=== PATIENT | female | born 1960 | race African-American/Black ===

== ENCOUNTER 2017-05-30 13:55 | Inpatient (IN) | payer OTHER ==
[2017-05-30 16:53] VITALS: BMI 22.3
--- NOTE | 2017-05-30 18:31 | HP ---
COWS - Scale Resting Pulse: 0= [place] 80 or Below Sweatin=Flushed/Facial Moisture Restless Observation: 1= Difficult to Sit Still Pupil Size: 0= Normal to Room Light Bone or Joint Aches: 1= Mild Discomfort Runny Nose/ Eye Tearin= Nasal Congestion GI Upset > 30mins: 1= Stomach Cramp Tremor Observation: 2= Slight Tremor Visible Yawning Observation: 1= 1-2x During Session Anxiety or Irritability: 2=Irritable/Anxious Goose Flesh Skin: 3=Piloerection COWS Score: 14 CIWA Score - CIWA Score Nausea/Vomitin Muscle Tremors: 2 Anxiety: 3 Agitation: 1-Slight > Activity Paroxysmal Sweats: 3 Orientation: 0-Oriented Tacttile Disturbances: 3-Moderate Itch/Numb/Burn Auditory Disturbances: 1-Very Mild Visual Disturbances: 0-None Headache: 1-Very Mild CIWA-Ar Total Score: 17 Admission ROS [facility]HS - HPI Chief Complaint: withdrawal symptoms. " I want to get better" Allergies/Adverse Reactions: Allergies Allergy/AdvReac Type Severity Reaction Status Date / Time Iodinated Contrast- Oral and Allergy Severe Verified 05/30/17 17:56 IV Dye [Iodinated Contrast Media - IV Dye] pork derived (porcine) Allergy Verified 05/30/17 17:56 iodine dye Allergy Severe Uncoded 05/30/17 17:56 History of Present Illness: 56 yo female with hx of heroin, cocaine, alcohol and nicotine is here seeking detox. PHMX: HIV+ on HARRT therapy, neuropathy on both lower extremities, Hep C. Denies suicidal / homicidal ideation or suicide attempts. Denies hx overdose , seizures or black outs. Last detox [place] 2015. Longest period of sobriety 7 years. Exam Limitations: No Limitations - Ebola screening Have you traveled outside of the country in the last 21 days: No Have you had contact with anyone from an Ebola affected area: No Have you been sick,other than usual withdrawal symptoms: No Do you have a fever: No - Review of Systems Constitutional: Chills, Changes in sleep, Unintentional Wgt. Loss (loss 10 lbs) EENT: reports: Nose Congestion Respiratory: reports: Cough (x 4 weeks) Cardiac: reports: No Symptoms Reported GI: reports: Nausea, Poor Fluid Intake, Abdominal cramping : reports: No Symptoms Reported Musculoskeletal: reports: Joint Pain Integumentary: reports: No Symptoms Reported Neuro: reports: Numbness, Tingling, Other (neuropathy on both feet, makes it difficulty to walk) Endocrine: reports: Increased Thirst Hematology: reports: No Symptoms Reported Psychiatric: reports: Mood/Affect Appropiate, Orientated x3 Other Systems: Reviewed and Negative Patient History - Patient Medical History Hx Anemia: No Hx Asthma: No Hx Chronic Obstructive Pulmonary Disease (COPD): No Hx Cancer: No Hx Cardiac Disorders: No Hx Congestive Heart Failure: No Hx Hypertension: No Hx Hypercholesterolemia: No Hx Pacemaker: No HX Cerebrovascular Accident: No Hx Seizures: No Hx Dementia: No Hx Diabetes: No Hx Gastrointestinal Disorders: No Hx Liver Disease: No Hx Genitourinary Disorders: No Hx Sexually Transmitted Disorders: Yes (Herpes) Hx Renal Disease (ESRD): No Hx Thyroid Disease: No Hx Human Immunodeficiency Virus (HIV): Yes (since 1988) Hx Hepatitis C: Yes (since 1988) Hx Depression: Yes Hx Suicide Attempt: No Hx Bipolar Disorder: No Hx Schizophrenia: No - Patient Surgical History Past Surgical History: Yes Hx Abdominal Surgery: Yes (hysterectomy) Hx Orthopedic Surgery: Yes (2011 left ankle fx, knee surgery 2011) Hx Hysterectomy: Yes (in 2004 for fibroid ) Other Surgical History: s/p removal of parotid tumors both in 1990 and radiation Sx L knee and L an Anesthesia Reaction: No - PPD History Previous Implant?: Yes Documented Results: Negative w/o proof Implanted On Prior R Admission?: Yes Date: 05/15/13 PPD to be Administered?: Yes - Reproductive History Patient : No - Smoking Cessation Smoking history: Current every day smoker Have you smoked in the past 12 months: Yes Aproximately how many cigarettes per day: 3 Cigars Per Day: 0 Hx Chewing Tobacco Use: No Initiated information on smoking cessation: Yes 'Breaking Loose' booklet given: 05/30/17 - Substance & Tx. History Hx Alcohol Use: Yes Substance Use Type: Alcohol, Cocaine, Heroin - Substances Abused Heroin Route: Inhalation Frequency: Daily Amount used: 1 bag Age of first use: 56 Date of Last Use: 05/30/17 Cocaine Route: Inhalation Frequency: Daily Amount used: $30 Age of first use: 22 Date of Last Use: 05/30/17 Alcohol Route: Oral Frequency: 1-2 times per week Amount used: 3-4 40 oz beers Age of first use: 13 Date of Last Use: 05/28/17 Family Disease History - Family Disease History Family Disease History: Other: Father (alcohol), Mother (alcohol) Admission Physical Exam [facility] - Vital Signs Vital Signs: Vital Signs - 24 hr 05/30/17 16:46 Temperature 97.1 F L Pulse Rate 80 Respiratory 18 Rate Blood Pressure 103/70 - Physical General Appearance: Yes: Appropriately Dressed, Mild Distress, Thin, Sweating, Anxious HEENTM: Yes: EOMI, Hearing grossly Normal, Normal ENT Inspection, Nasal Congestion, Rhinorrhea Respiratory: Yes: Chest Non-Tender, No Respiratory Distress, No Accessory Muscle Use, Wheezing (bilateral lower lobes) Neck: Yes: No masses,lesions,Nodules, Trachea in good position Breast: Yes: Breast Exam Deferred Cardiology: Yes: Regular Rhythm, Regular Rate Abdominal: Yes: Normal Bowel Sounds, Non Tender, Flat, Soft Genitourinary: Yes: Within Normal Limits Back: Yes: Normal Inspection Musculoskeletal: Yes: full range of Motion, Other (difficulty planting feet on the ground , attributes pain to neuropathy, patient receive in wheelchair) Extremities: Yes: Normal Capillary Refill, Normal Inspection, Normal Range of Motion, Non-Tender Neurological: 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, Fully Oriented, Alert, Motor Strength 5/5, Depressed Affect Integumentary: Yes: Normal Color, Dry, Warm Lymphatic: Yes: Within Normal Limits - Diagnostic (1) Opioid dependence with withdrawal Current Visit: Yes Status: Acute (2) Alcohol dependence with withdrawal Current Visit: Yes Status: Acute Qualifiers: Complication of substance-induced condition: uncomplicated Qualified Code(s ): F10.230 - Alcohol dependence with withdrawal, uncomplicated (3) Neuropathy involving both lower extremities Current Visit: Yes Status: Chronic (4) HIV (human immunodeficiency virus infection) Current Visit: Yes Status: Chronic (5) Hepatitis C carrier Current Visit: Yes Status: Chronic (6) Weight decreased Current Visit: Yes Status: Acute (7) Upper respiratory infection with cough and congestion Current Visit: Yes Status: Acute (8) Wheezing Current Visit: Yes Status: Acute Cleared for Admission [facility] - Detox or Rehab [facility] Level of Care: Medically Managed Detox Regimen/Protocol: Methadone/Librium S Breath Alcohol Content Breath Alcohol Content: 0 Urine Pregancy Test - Result Urine Test Results: Negative- NO Line Present Urine Drug Screen - Results Drug Screen Negative: No Urine Drug Screen Results: THC-Marijuana, HONORIO-Cocaine, OPI-Opiates
[2017-05-30] MEDS ORDERED: chlordiazePOXIDE HCL 25 MG CAPSULE PO PRN (18:37)
[2017-05-30] MEDS ORDERED: guaiFENesin/D-METHORPHAN HB 10 ML UNIT-DOSE CUPS PO PRN (18:37)
[2017-05-30] MEDS ORDERED: chlordiazePOXIDE HCL 25 MG CAPSULE PO ONE (18:37)
[2017-05-30] MEDS ORDERED: METHADONE HCL 10 MG TABLET (FOR DETOX USE ONLY) PO ONE ×2 (18:37→23:00)
[2017-05-30] MEDS ORDERED: LOPERAMIDE HCL 2 MG CAPSULE PO PRN (18:37)
[2017-05-30] MEDS ORDERED: MAGNESIUM HYDROX 2400MG/30ML ORAL SUSPENSION 30 ML CUP PO PRN (18:37)
[2017-05-30] MEDS ORDERED: MAG HYDROX/AL HYDROX/SIMETH 30 ML UNIT-DOSE CUP PO PRN (18:37)
[2017-05-30] MEDS ORDERED: NICOTINE POLACRILEX 2 MG GUM BC PRN (18:37)
[2017-05-30] MEDS ORDERED: MAGNESIUM CITRATE 300 ML BOTTLE PO PRN (18:37)
[2017-05-30] MEDS ORDERED: MENTHOL/PHENOL 1 EACH UD MM PRN (18:37)
[2017-05-30] MEDS ORDERED: P-EPHED 60MG/TRIPROLIDI 2.5MG TABLET PO PRN (18:37)
[2017-05-30] MEDS ORDERED: AZITHROMYCIN 250 MG TABLET PO ONE (19:03)
[2017-05-30] MEDS ORDERED: ALBUTEROL SO4 2.5/IPRATROPIUM 0.5 INH SOL 3 ML VIAL.NEB. NEB PRN (19:03)
[2017-05-30] MEDS: GABAPENTIN 300 MG CAPSULE (FP) PO SCH (22:32)
[2017-05-30] MEDS: THIAMINE HCL 100 MG TABLET (FP) PO SCH (22:32)
[2017-05-30] MEDS: valACYclovir HCL 500 MG TABLET (FP) PO SCH (22:33)
[2017-05-30] MEDS: chlordiazePOXIDE HCL 25 MG CAPSULE PO SCH (22:33)
[2017-05-31 00:01] LABS: URINE APPEARANCE CLEAR; URINE BILIRUBIN NEGATIVE (NEGATIVE); URINE BLOOD NEGATIVE (NEGATIVE); URINE COLOR YELLOW; URINE GLUCOSE (UA) NEGATIVE (NEGATIVE); URINE KETONE NEGATIVE (NEGATIVE); URINE NITRITE NEGATIVE (NEGATIVE); URINE PROTEIN NEGATIVE (NEGATIVE); URINE UROBILINOGEN NEGATIVE mg/dL (0.2-1.0)
[2017-05-31 00:03] LABS: URINE LEUK ESTERASE 2+ (NEGATIVE)
[2017-05-31 00:12] LABS: EPI CELLS RARE /HPF (FEW); URINE BACTERIA RARE /hpf (NONE SEEN); URINE MUCUS FEW
[2017-05-31] MEDS: GABAPENTIN 300 MG CAPSULE (FP) PO SCH ×3 (06:13→21:56)
[2017-05-31] MEDS: chlordiazePOXIDE HCL 25 MG CAPSULE PO SCH ×4 (06:14→22:49)
--- NOTE | 2017-05-31 09:27 | PN ---
[facility] CIWA - CIWA Score Nausea/Vomitin-Mild Nausea/No Vomiting Muscle Tremors: 4-Moderate,w/Arms Extend Anxiety: 4-Mod. Anxious/Guarded Agitation: 4-Moderately Restless Paroxysmal Sweats: 1-Minimal Palms Moist Orientation: 0-Oriented Tacttile Disturbances: 1-Very Mild Itch/Numbness Auditory Disturbances: 0-None Visual Disturbances: 0-None Headache: 0-None Present CIWA-Ar Total Score: 15 S COWS - Scale Resting Pulse: 0= [place] 80 or Below Sweatin= Chills/Flushing Restless Observation: 1= Difficult to Sit Still Pupil Size: 0= Normal to Room Light Bone or Joint Aches: 2= Severe Diffuse Aches Runny Nose/ Eye Tearin= Nasal Congestion GI Upset > 30mins: 2= Nausea/Diarrhea Tremor Observation of Outstretched Hands: 2= Slight Tremor Visible Yawning Observation: 2= >3x During Session Anxiety or Irritability: 2=Irritable/Anxious Goose Flesh Skin: 0=Smooth Skin COWS Score: 13 S Progress Note (SOAP) Subjective: joint ache body muscle pain sweat tremor restlessness irritable anxiety Objective: 05/31/17 09:30 Vital Signs Temperature 99.1 F 05/31/17 06:22 Pulse Rate 77 05/31/17 06:22 Respiratory Rate 18 05/31/17 06:22 Blood Pressure 105/68 05/31/17 06:22 O2 Sat by Pulse Oximetry (%) Laboratory Last Values Urine Color Yellow 05/30/17 23:40 Urine Appearance Clear 05/30/17 23:40 Urine pH 5.0 (5.0-8.0) 05/30/17 23:40 Ur Specific [place] 1.014 (1.001-1.035) 05/30/17 23:40 Urine Protein Negative (NEGATIVE) 05/30/17 23:40 Urine Glucose (UA) Negative (NEGATIVE) 05/30/17 23:40 Urine Ketones Negative (NEGATIVE) 05/30/17 23:40 Urine Blood Negative (NEGATIVE) 05/30/17 23:40 Urine Nitrite Negative (NEGATIVE) 05/30/17 23:40 Urine Bilirubin Negative (NEGATIVE) 05/30/17 23:40 Urine Urobilinogen Negative mg/dL (0.2-1.0) 05/30/17 23:40 Ur Leukocyte Esterase 2+ (NEGATIVE) H 05/30/17 23:40 Urine WBC (Auto) 1 /hpf (3-5) 05/30/17 23:40 Urine RBC (Auto) 2 /hpf (0-3) 05/30/17 23:40 Ur Epithelial Cells Rare /HPF (FEW) 05/30/17 23:40 Urine Bacteria Rare /hpf (NONE SEEN) 05/30/17 23:40 Urine Mucus Few 05/30/17 23:40 lab noted Assessment: 05/31/17 09:31 withdrawal sx Plan: continue detox
[2017-05-31] MEDS ORDERED: METHADONE HCL 10 MG TABLET (FOR DETOX USE ONLY) PO SCH (10:00)
[2017-05-31 10:15] LABS: HEMATOCRIT 32.5 % (32.4-45.2); HEMOGLOBIN 10.6 GM/dL (10.7-15.3); MCH 27.8 pg (25.7-33.7); MCHC 32.8 g/dl (32.0-36.0); MEAN CELL VOLUME 84.7 fl (80-96); PLATELET COUNT 237 K/MM3 (134-434); RBC 3.83 M/mm3 (3.60-5.2); RDW 13.4 % (11.6-15.6); WHITE BLOOD COUNT 5.2 K/mm3 (4.0-10.0)
[2017-05-31 10:18] LABS: ALBUMIN 2.5 g/dl (3.4-5.0); ALK PHOS 51 U/L (45-117); ANION GAP 7 (8-16); BLOOD UREA NITROGEN 12 mg/dL (7-18); CALCIUM 7.5 mg/dL (8.5-10.1); CHLORIDE 100 mmol/L (98-107); CO2 29 mmol/L (21-32); CREATININE 0.8 mg/dL (0.55-1.02); GLUCOSE,RANDOM 72 mg/dL (74-106); POTASSIUM 4.2 mmol/L (3.5-5.1); SGOT/AST 20 U/L (15-37); SGPT/ALT 11 U/L (12-78); SODIUM 136 mmol/L (136-145); TOT PROT 7.3 g/dl (6.4-8.2)
[2017-05-31 10:30] LABS: BILIRUBIN,TOTAL < 0.1 mg/dL (0.2-1.0)
[2017-05-31] MEDS: PRENATAL VITAMINS W/ FOLIC ACID TABLET (FP) PO SCH (11:00)
[2017-05-31] MEDS: valACYclovir HCL 500 MG TABLET (FP) PO SCH ×2 (11:00→21:54)
[2017-05-31] MEDS: AZITHROMYCIN 250 MG TABLET PO SCH (11:00)
[2017-05-31] MEDS: ELVITEG/COB/EMTRI/TENOFO (STRIBILD) TABLET -NF PO SCH (11:00)
[2017-05-31] MEDS: ACETAMINOPHEN 325 MG TABLET (FP) PO PRN ×2 (11:58→23:13)
[2017-05-31] MEDS: NICOTINE 14 MG/24 HOURS TOPICAL PATCH TD SCH (11:59)
--- NOTE | 2017-05-31 12:14 | EKG ---
Test Reason : Blood Pressure : / mmHG Vent. Rate : 079 BPM Atrial Rate : 079 BPM P-R Int : 194 ms QRS Dur : 086 ms QT Int : 366 ms P-R-T Axes : 053 043 067 degrees QTc Int : 419 ms NORMAL SINUS RHYTHM NORMAL ECG NO PREVIOUS ECGS AVAILABLE Confirmed by MD HECTOR, MATT ([id number]) on 05/31/2017 12:14:00 PM Referred By: Confirmed By:MATT YOUNG MD
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
[2017-05-31] MEDS: THIAMINE HCL 100 MG TABLET (FP) PO SCH (21:54)
[2017-05-31] MEDS: IBUPROFEN 400 MG TABLET (FP) PO PRN (21:54)
[2017-06-01] MEDS: chlordiazePOXIDE HCL 25 MG CAPSULE PO SCH ×3 (06:00→17:35)
[2017-06-01] MEDS: GABAPENTIN 300 MG CAPSULE (FP) PO SCH ×3 (07:24→22:50)
[2017-06-01] MEDS: METHADONE HCL 5 MG TABLET (FOR DETOX USE ONLY) PO SCH (10:58)
[2017-06-01] MEDS: NICOTINE 14 MG/24 HOURS TOPICAL PATCH TD SCH (10:58)
[2017-06-01] MEDS: PRENATAL VITAMINS W/ FOLIC ACID TABLET (FP) PO SCH (10:58)
[2017-06-01] MEDS: valACYclovir HCL 500 MG TABLET (FP) PO SCH ×2 (10:58→22:50)
[2017-06-01] MEDS: ELVITEG/COB/EMTRI/TENOFO (STRIBILD) TABLET -NF PO SCH (10:59)
[2017-06-01] MEDS: AZITHROMYCIN 250 MG TABLET PO SCH (10:59)
--- NOTE | 2017-06-01 11:08 | PN ---
[facility] CIWA - CIWA Score Nausea/Vomitin-Mild Nausea/No Vomiting Muscle Tremors: 4-Moderate,w/Arms Extend Anxiety: 3 Agitation: 3 Paroxysmal Sweats: 1-Minimal Palms Moist Orientation: 0-Oriented Tacttile Disturbances: 0-None Auditory Disturbances: 0-None Visual Disturbances: 0-None Headache: 0-None Present CIWA-Ar Total Score: 12 S COWS - Scale Resting Pulse: 0= [place] 80 or Below Sweatin= Chills/Flushing Restless Observation: 1= Difficult to Sit Still Pupil Size: 0= Normal to Room Light Bone or Joint Aches: 1= Mild Discomfort Runny Nose/ Eye Tearin= Runny Nose/Eyes GI Upset > 30mins: 1= Stomach Cramp Tremor Observation of Outstretched Hands: 2= Slight Tremor Visible Yawning Observation: 2= >3x During Session Anxiety or Irritability: 1=Feels Anxious/Irritable Goose Flesh Skin: 0=Smooth Skin COWS Score: 11 [facility] Progress Note (SOAP) Subjective: sweat tremor gi upset restlessness anxiety sleeplessness joint aches muscle pain Objective: 06/01/17 11:09 Vital Signs Temperature 97.5 F L 06/01/17 10:52 Pulse Rate 76 06/01/17 10:52 Respiratory Rate 20 06/01/17 10:52 Blood Pressure 92/58 06/01/17 10:52 O2 Sat by Pulse Oximetry (%) Laboratory Last Values WBC 5.2 K/mm3 (4.0-10.0) 05/31/17 07:00 RBC 3.83 M/mm3 (3.60-5.2) 05/31/17 07:00 Hgb 10.6 GM/dL (10.7-15.3) L D 05/31/17 07:00 Hct 32.5 % (32.4-45.2) 05/31/17 07:00 MCV 84.7 fl (80-96) 05/31/17 07:00 MCH 27.8 pg (25.7-33.7) 05/31/17 07:00 MCHC 32.8 g/dl (32.0-36.0) 05/31/17 07:00 RDW 13.4 % (11.6-15.6) 05/31/17 07:00 Plt Count 237 K/MM3 (134-434) 05/31/17 07:00 MPV 7.0 fl (7.5-11.1) L 05/31/17 07:00 Sodium 136 mmol/L (136-145) 05/31/17 07:00 Potassium 4.2 mmol/L (3.5-5.1) 05/31/17 07:00 Chloride 100 mmol/L (98-107) 05/31/17 07:00 Carbon Dioxide 29 mmol/L (21-32) 05/31/17 07:00 Anion Gap 7 (8-16) L 05/31/17 07:00 BUN 12 mg/dL (7-18) 05/31/17 07:00 Creatinine 0.8 mg/dL (0.55-1.02) 05/31/17 07:00 Creat Clearance w eGFR > 60 (>60) 05/31/17 07:00 Random Glucose 72 mg/dL (74-106) L 05/31/17 07:00 Calcium 7.5 mg/dL (8.5-10.1) L 05/31/17 07:00 Total Bilirubin < 0.1 mg/dL (0.2-1.0) L D 05/31/17 07:00 AST 20 U/L (15-37) 05/31/17 07:00 ALT 11 U/L (12-78) L 05/31/17 07:00 Alkaline Phosphatase 51 U/L (45-117) 05/31/17 07:00 Total Protein 7.3 g/dl (6.4-8.2) 05/31/17 07:00 Albumin 2.5 g/dl (3.4-5.0) L 05/31/17 07:00 Urine Color Yellow 05/30/17 23:40 Urine Appearance Clear 05/30/17 23:40 Urine pH 5.0 (5.0-8.0) 05/30/17 23:40 Ur Specific [place] 1.014 (1.001-1.035) 05/30/17 23:40 Urine Protein Negative (NEGATIVE) 05/30/17 23:40 Urine Glucose (UA) Negative (NEGATIVE) 05/30/17 23:40 Urine Ketones Negative (NEGATIVE) 05/30/17 23:40 Urine Blood Negative (NEGATIVE) 05/30/17 23:40 Urine Nitrite Negative (NEGATIVE) 05/30/17 23:40 Urine Bilirubin Negative (NEGATIVE) 05/30/17 23:40 Urine Urobilinogen Negative mg/dL (0.2-1.0) 05/30/17 23:40 Ur Leukocyte Esterase 2+ (NEGATIVE) H 05/30/17 23:40 Urine WBC (Auto) 1 /hpf (3-5) 05/30/17 23:40 Urine RBC (Auto) 2 /hpf (0-3) 05/30/17 23:40 Ur Epithelial Cells Rare /HPF (FEW) 05/30/17 23:40 Urine Bacteria Rare /hpf (NONE SEEN) 05/30/17 23:40 Urine Mucus Few 05/30/17 23:40 RPR Titer Nonreactive (NONREACTIVE) 05/31/17 07:00 lab noted Assessment: 06/01/17 11:09 withdrawal sx Plan: continue detox
[2017-06-01] MEDS: IBUPROFEN 400 MG TABLET (FP) PO PRN (18:34)
[2017-06-01] MEDS: chlordiazePOXIDE 5 MG CAPSULE PO SCH (22:49)
[2017-06-01] MEDS: THIAMINE HCL 100 MG TABLET (FP) PO SCH (22:50)
[2017-06-01] MEDS: ACETAMINOPHEN 325 MG TABLET (FP) PO PRN (22:51)
[2017-06-02] MEDS: GABAPENTIN 300 MG CAPSULE (FP) PO SCH ×3 (06:35→22:30)
[2017-06-02] MEDS: chlordiazePOXIDE 5 MG CAPSULE PO SCH ×3 (07:34→17:07)
[2017-06-02] MEDS: METHADONE HCL 5 MG TABLET (FOR DETOX USE ONLY) PO SCH (10:24)
[2017-06-02] MEDS: valACYclovir HCL 500 MG TABLET (FP) PO SCH ×2 (10:25→22:29)
[2017-06-02] MEDS: PRENATAL VITAMINS W/ FOLIC ACID TABLET (FP) PO SCH (10:25)
[2017-06-02] MEDS: AZITHROMYCIN 250 MG TABLET PO SCH (10:25)
[2017-06-02] MEDS: NICOTINE 14 MG/24 HOURS TOPICAL PATCH TD SCH (10:26)
[2017-06-02] MEDS: ELVITEG/COB/EMTRI/TENOFO (STRIBILD) TABLET -NF PO SCH (10:26)
--- NOTE | 2017-06-02 11:26 | PN ---
[facility] Progress Note (SOAP) Subjective: joint pain body aches sweat tremor gi distress stuffy nose, irritable restlessness Objective: 06/02/17 11:25 Vital Signs Temperature 97.3 F L 06/02/17 11:00 Pulse Rate 73 06/02/17 11:00 Respiratory Rate 16 06/02/17 11:00 Blood Pressure 95/64 06/02/17 11:00 O2 Sat by Pulse Oximetry (%) Laboratory Last Values WBC 5.2 K/mm3 (4.0-10.0) 05/31/17 07:00 RBC 3.83 M/mm3 (3.60-5.2) 05/31/17 07:00 Hgb 10.6 GM/dL (10.7-15.3) L D 05/31/17 07:00 Hct 32.5 % (32.4-45.2) 05/31/17 07:00 MCV 84.7 fl (80-96) 05/31/17 07:00 MCH 27.8 pg (25.7-33.7) 05/31/17 07:00 MCHC 32.8 g/dl (32.0-36.0) 05/31/17 07:00 RDW 13.4 % (11.6-15.6) 05/31/17 07:00 Plt Count 237 K/MM3 (134-434) 05/31/17 07:00 MPV 7.0 fl (7.5-11.1) L 05/31/17 07:00 Sodium 136 mmol/L (136-145) 05/31/17 07:00 Potassium 4.2 mmol/L (3.5-5.1) 05/31/17 07:00 Chloride 100 mmol/L (98-107) 05/31/17 07:00 Carbon Dioxide 29 mmol/L (21-32) 05/31/17 07:00 Anion Gap 7 (8-16) L 05/31/17 07:00 BUN 12 mg/dL (7-18) 05/31/17 07:00 Creatinine 0.8 mg/dL (0.55-1.02) 05/31/17 07:00 Creat Clearance w eGFR > 60 (>60) 05/31/17 07:00 Random Glucose 72 mg/dL (74-106) L 05/31/17 07:00 Calcium 7.5 mg/dL (8.5-10.1) L 05/31/17 07:00 Total Bilirubin < 0.1 mg/dL (0.2-1.0) L D 05/31/17 07:00 AST 20 U/L (15-37) 05/31/17 07:00 ALT 11 U/L (12-78) L 05/31/17 07:00 Alkaline Phosphatase 51 U/L (45-117) 05/31/17 07:00 Total Protein 7.3 g/dl (6.4-8.2) 05/31/17 07:00 Albumin 2.5 g/dl (3.4-5.0) L 05/31/17 07:00 Urine Color Yellow 05/30/17 23:40 Urine Appearance Clear 05/30/17 23:40 Urine pH 5.0 (5.0-8.0) 05/30/17 23:40 Ur Specific [place] 1.014 (1.001-1.035) 05/30/17 23:40 Urine Protein Negative (NEGATIVE) 05/30/17 23:40 Urine Glucose (UA) Negative (NEGATIVE) 05/30/17 23:40 Urine Ketones Negative (NEGATIVE) 05/30/17 23:40 Urine Blood Negative (NEGATIVE) 05/30/17 23:40 Urine Nitrite Negative (NEGATIVE) 05/30/17 23:40 Urine Bilirubin Negative (NEGATIVE) 05/30/17 23:40 Urine Urobilinogen Negative mg/dL (0.2-1.0) 05/30/17 23:40 Ur Leukocyte Esterase 2+ (NEGATIVE) H 05/30/17 23:40 Urine WBC (Auto) 1 /hpf (3-5) 05/30/17 23:40 Urine RBC (Auto) 2 /hpf (0-3) 05/30/17 23:40 Ur Epithelial Cells Rare /HPF (FEW) 05/30/17 23:40 Urine Bacteria Rare /hpf (NONE SEEN) 05/30/17 23:40 Urine Mucus Few 05/30/17 23:40 RPR Titer Nonreactive (NONREACTIVE) 05/31/17 07:00 lab noted Assessment: 06/02/17 11:26 withdrawal sx Plan: continue detox
[2017-06-02] MEDS: chlordiazePOXIDE HCL 10 MG CAPSULE PO SCH (22:29)
[2017-06-02] MEDS: IBUPROFEN 400 MG TABLET (FP) PO PRN (22:29)
[2017-06-02] MEDS: THIAMINE HCL 100 MG TABLET (FP) PO SCH (22:29)
[2017-06-03] MEDS: chlordiazePOXIDE HCL 10 MG CAPSULE PO SCH ×3 (06:44→17:12)
[2017-06-03] MEDS: GABAPENTIN 300 MG CAPSULE (FP) PO SCH ×3 (06:44→22:26)
[2017-06-03] MEDS ORDERED: METHADONE HCL 10 MG TABLET (FOR DETOX USE ONLY) PO SCH (10:00)
[2017-06-03] MEDS: valACYclovir HCL 500 MG TABLET (FP) PO SCH ×2 (10:49→22:26)
[2017-06-03] MEDS: PRENATAL VITAMINS W/ FOLIC ACID TABLET (FP) PO SCH (10:49)
[2017-06-03] MEDS: ELVITEG/COB/EMTRI/TENOFO (STRIBILD) TABLET -NF PO SCH (10:50)
[2017-06-03] MEDS: AZITHROMYCIN 250 MG TABLET PO SCH (10:50)
[2017-06-03] MEDS: NICOTINE 14 MG/24 HOURS TOPICAL PATCH TD SCH (10:50)
--- NOTE | 2017-06-03 11:24 | PN ---
[facility] Progress Note (SOAP) Subjective: aches and pains , nausea, interrupted sleep, but better than yesterday Objective: 06/03/17 11:23 Vital Signs Temperature 96.6 F L 06/03/17 10:42 Pulse Rate 75 06/03/17 10:42 Respiratory Rate 20 06/03/17 10:42 Blood Pressure 97/63 06/03/17 10:42 O2 Sat by Pulse Oximetry (%) Laboratory Tests 05/30/17 05/31/17 05/31/17 23:40 07:00 07:00 WBC 5.2 RBC 3.83 Hgb 10.6 L D Hct 32.5 MCV 84.7 MCH 27.8 MCHC 32.8 RDW 13.4 Plt Count 237 MPV 7.0 L Sodium 136 Potassium 4.2 Chloride 100 Carbon Dioxide 29 Anion Gap 7 L BUN 12 Creatinine 0.8 Creat Clearance w eGFR > 60 Random Glucose 72 L Calcium 7.5 L Total Bilirubin < 0.1 L D AST 20 ALT 11 L Alkaline Phosphatase 51 Total Protein 7.3 Albumin 2.5 L Urine Color Yellow Urine Appearance Clear Urine pH 5.0 Ur Specific [place] 1.014 Urine Protein Negative Urine Glucose (UA) Negative Urine Ketones Negative Urine Blood Negative Urine Nitrite Negative Urine Bilirubin Negative Urine Urobilinogen Negative Ur Leukocyte Esterase 2+ H Urine WBC (Auto) 1 Urine RBC (Auto) 2 Ur Epithelial Cells Rare Urine Bacteria Rare Urine Mucus Few RPR Titer 05/31/17 07:00 WBC RBC Hgb Hct MCV MCH MCHC RDW Plt Count MPV Sodium Potassium Chloride Carbon Dioxide Anion Gap BUN Creatinine Creat Clearance w eGFR Random Glucose Calcium Total Bilirubin AST ALT Alkaline Phosphatase Total Protein Albumin Urine Color Urine Appearance Urine pH Ur Specific [place] Urine Protein Urine Glucose (UA) Urine Ketones Urine Blood Urine Nitrite Urine Bilirubin Urine Urobilinogen Ur Leukocyte Esterase Urine WBC (Auto) Urine RBC (Auto) Ur Epithelial Cells Urine Bacteria Urine Mucus RPR Titer Nonreactive pt aox3 in nad ambulating Assessment: 06/03/17 11:23 withdrawal sx;s Plan: cont. detox increase fluids d/c in am
[2017-06-03] MEDS: hydrOXYzine PAMOATE 50 MG CAPSULE (FP) PO PRN (22:26)
[2017-06-03] MEDS: THIAMINE HCL 100 MG TABLET (FP) PO SCH (22:26)
[2017-06-04] MEDS ORDERED: METHADONE HCL 5 MG TABLET (FOR DETOX USE ONLY) PO SCH (06:00)
[2017-06-04] MEDS: GABAPENTIN 300 MG CAPSULE (FP) PO SCH ×2 (07:22→14:56)
--- NOTE | 2017-06-04 10:03 | PN ---
S Progress Note (SOAP) Subjective: ALERT,NO COMPLAINT Objective: 06/04/17 10:01 Vital Signs Temperature 97.6 F 06/04/17 06:22 Pulse Rate 66 06/04/17 06:22 Respiratory Rate 18 06/04/17 06:30 Blood Pressure 90/54 06/04/17 06:22 O2 Sat by Pulse Oximetry (%) Assessment: 06/04/17 10:04 DETOX COMPLETED,NO WITHDRAWAL SYMPTOM Plan: DISCHARGE TODAY,FOLLOW UP WITH AFTER CARE PROGRAM ARRANGEMENT
--- NOTE | 2017-06-04 10:18 | DS ---
[facility] Detox Discharge Summary Admission Date: 05/30/17 Discharge Date: 06/04/17 - History Present History: Alcohol Dependence, Cocaine Dependence, Opioid Dependence Additional Comments: FOLLOW UP WITH AFTER CARE PROGRAM ARRANGEMENT Pertinent Past History: HIV NEUROPATHY HEPATITIS C WEIGHT LOSS ASTHMA AMBULATION WITH CANE HISTORY OF GENITAL HERPES - Physical Exam Results Vital Signs: Vital Signs Temperature 96.6 F L 06/04/17 10:08 Pulse Rate 75 06/04/17 10:08 Respiratory Rate 20 06/04/17 10:08 Blood Pressure 93/65 06/04/17 10:08 O2 Sat by Pulse Oximetry (%) Pertinent Admission Physical Exam Findings: WITHDRAWAL SIGNS AND SYMPTOM - Treatment Hospital Course: Detox Protocol Followed, Detoxed Safely, Responded well, Discharged Condition Good Patient has Accepted a Rehab Referral to: DECLINED - Medication Discharge Medications: Ambulatory Orders Valacyclovir HCl [Valtrex -] 500 mg PO BID #60 tablet 05/17/13 Ascorbic Acid [Vitamin C -] 500 mg PO BID 05/30/17 Elviteg/Cob/Emtri/Tenofo Disop [Stribild Tablet] 1 each PO DAILY 05/30/17 Gabapentin [Neurontin -] 300 mg PO Q8H 05/30/17 - Diagnosis (1) Alcohol dependence with withdrawal Current Visit: Yes Status: Acute Qualifiers: Complication of substance-induced condition: uncomplicated Qualified Code(s ): F10.230 - Alcohol dependence with withdrawal, uncomplicated (2) Cocaine dependence Current Visit: Yes Status: Acute (3) Opioid dependence with withdrawal Current Visit: Yes Status: Acute (4) Weight decreased Current Visit: Yes Status: Acute (5) HIV (human immunodeficiency virus infection) Current Visit: Yes Status: Chronic (6) Seizure Current Visit: No Status: Acute (7) Status post hysterectomy Current Visit: No Status: Acute (8) Syncope Current Visit: No Status: Acute (9) Asthma Current Visit: Yes Status: Acute - AMA Did Patient Leave Against Medical Advice: No
[2017-06-04] MEDS ORDERED: ALBUTEROL SO4 18 GM HFA INHALER IH PRN (10:21)
[2017-06-04] MEDS: PRENATAL VITAMINS W/ FOLIC ACID TABLET (FP) PO SCH (11:19)
[2017-06-04] MEDS: valACYclovir HCL 500 MG TABLET (FP) PO SCH (11:19)
[2017-06-04] MEDS: NICOTINE 14 MG/24 HOURS TOPICAL PATCH TD SCH (11:20)
[2017-06-04] MEDS: ELVITEG/COB/EMTRI/TENOFO (STRIBILD) TABLET -NF PO SCH (11:20)
--- NOTE | 2017-06-04 12:46 | PN ---
[facility] Progress Note Note: PATIENT FEEL WEAK,WALKING WITH UNSTEADY GAIT WITH CANE,CONFUSED AT TIME, INTERRUPTED SLEEP WILL HOLD DISCHARGE TODAY, CLOSE MONITORING REPEAT CBC,CMP,AMMONIA LEVEL IN AM
[2017-06-04] MEDS: ACETAMINOPHEN 325 MG TABLET (FP) PO PRN (21:51)
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
[2017-06-05] MEDS: GABAPENTIN 300 MG CAPSULE (FP) PO SCH ×4 (00:08→22:03)
[2017-06-05] MEDS: THIAMINE HCL 100 MG TABLET (FP) PO SCH ×2 (00:09→22:03)
[2017-06-05] MEDS: valACYclovir HCL 500 MG TABLET (FP) PO SCH ×3 (00:09→22:03)
[2017-06-05 10:51] LABS: HEMATOCRIT 35.5 % (32.4-45.2); HEMOGLOBIN 11.5 GM/dL (10.7-15.3); MCH 27.5 pg (25.7-33.7); MCHC 32.5 g/dl (32.0-36.0); MEAN CELL VOLUME 84.7 fl (80-96); MEAN PLT VOLUME 6.9 fl (7.5-11.1); PLATELET COUNT 275 K/MM3 (134-434); RBC 4.19 M/mm3 (3.60-5.2); RDW 13.9 % (11.6-15.6); WHITE BLOOD COUNT 4.1 K/mm3 (4.0-10.0)
[2017-06-05 11:00] LABS: CHLORIDE 103 mmol/L (98-107); POTASSIUM 3.9 mmol/L (3.5-5.1); SODIUM 141 mmol/L (136-145)
[2017-06-05] MEDS: PRENATAL VITAMINS W/ FOLIC ACID TABLET (FP) PO SCH (11:04)
[2017-06-05] MEDS: NICOTINE 14 MG/24 HOURS TOPICAL PATCH TD SCH (11:05)
[2017-06-05] MEDS: ELVITEG/COB/EMTRI/TENOFO (STRIBILD) TABLET -NF PO SCH (11:06)
[2017-06-05 11:07] LABS: ALBUMIN 2.7 g/dl (3.4-5.0); ALK PHOS 54 U/L (45-117); ANION GAP 7 (8-16); BILIRUBIN,TOTAL 0.4 mg/dL (0.2-1.0); BLOOD UREA NITROGEN 11 mg/dL (7-18); CALCIUM 8.4 mg/dL (8.5-10.1); CO2 31 mmol/L (21-32); CREATININE 0.8 mg/dL (0.55-1.02); GLUCOSE,RANDOM 87 mg/dL (74-106); SGOT/AST 34 U/L (15-37); SGPT/ALT 22 U/L (12-78); TOT PROT 8.6 g/dl (6.4-8.2)
[2017-06-05] MEDS: hydrOXYzine PAMOATE 50 MG CAPSULE (FP) PO PRN (11:07)
--- NOTE | 2017-06-05 12:13 | PN ---
[facility] Progress Note Note: 56 years old female admitted for alcohol and opiate detox, patient completed detox but confusion with unsteady gait fell 06/04/17 medically cleared by ER returned with fall precaution patient is disoriented to time date person and place, alert speech clearly, poor memory, difficulty in follow in verbal direction, denies headache denies dizziness ambulate with cane patient preoccupied that "people" are talking about her appears to be negative about her patient wants to return to [facility] "the people there are great" according to the counselor that poor living situation is the issue
[2017-06-06] MEDS: GABAPENTIN 300 MG CAPSULE (FP) PO SCH ×2 (07:28→15:30)
--- NOTE | 2017-06-06 10:00 | DS ---
[facility] Detox Discharge Summary Admission Date: 05/30/17 Discharge Date: 06/06/17 - History Present History: Alcohol Dependence, Opioid Dependence Additional Comments: 56 years old female admitted for alcohol and opiate detox completed detox denies pain denies withdrawal sx counselor arranged aftercare in [facility], transportation will be provided patient is going to [facility] rehab at the present time - Physical Exam Results Vital Signs: Vital Signs Temperature 97.3 F L 06/06/17 08:15 Pulse Rate 79 06/06/17 08:15 Respiratory Rate 19 06/06/17 08:15 Blood Pressure 91/53 06/06/17 08:15 O2 Sat by Pulse Oximetry (%) Pertinent Admission Physical Exam Findings: withdrawal sx Vital Signs Temperature 97.3 F L 06/06/17 08:15 Pulse Rate 79 06/06/17 08:15 Respiratory Rate 19 06/06/17 08:15 Blood Pressure 91/53 06/06/17 08:15 O2 Sat by Pulse Oximetry (%) Laboratory Last Values WBC 4.1 K/mm3 (4.0-10.0) 06/05/17 08:00 RBC 4.19 M/mm3 (3.60-5.2) 06/05/17 08:00 Hgb 11.5 GM/dL (10.7-15.3) 06/05/17 08:00 Hct 35.5 % (32.4-45.2) 06/05/17 08:00 MCV 84.7 fl (80-96) 06/05/17 08:00 MCH 27.5 pg (25.7-33.7) 06/05/17 08:00 MCHC 32.5 g/dl (32.0-36.0) 06/05/17 08:00 RDW 13.9 % (11.6-15.6) 06/05/17 08:00 Plt Count 275 K/MM3 (134-434) 06/05/17 08:00 MPV 6.9 fl (7.5-11.1) L 06/05/17 08:00 Sodium 141 mmol/L (136-145) 06/05/17 08:00 Potassium 3.9 mmol/L (3.5-5.1) 06/05/17 08:00 Chloride 103 mmol/L (98-107) 06/05/17 08:00 Carbon Dioxide 31 mmol/L (21-32) 06/05/17 08:00 Anion Gap 7 (8-16) L 06/05/17 08:00 BUN 11 mg/dL (7-18) 06/05/17 08:00 Creatinine 0.8 mg/dL (0.55-1.02) 06/05/17 08:00 Creat Clearance w eGFR > 60 (>60) 06/05/17 08:00 Random Glucose 87 mg/dL (74-106) 06/05/17 08:00 Calcium 8.4 mg/dL (8.5-10.1) L 06/05/17 08:00 Total Bilirubin 0.4 mg/dL (0.2-1.0) D 06/05/17 08:00 AST 34 U/L (15-37) 06/05/17 08:00 ALT 22 U/L (12-78) 06/05/17 08:00 Alkaline Phosphatase 54 U/L (45-117) 06/05/17 08:00 Ammonia 51.26 umol/L (11-32) H 06/05/17 08:00 Total Protein 8.6 g/dl (6.4-8.2) H 06/05/17 08:00 Albumin 2.7 g/dl (3.4-5.0) L 06/05/17 08:00 Urine Color Yellow 05/30/17 23:40 Urine Appearance Clear 05/30/17 23:40 Urine pH 5.0 (5.0-8.0) 05/30/17 23:40 Ur Specific [place] 1.014 (1.001-1.035) 05/30/17 23:40 Urine Protein Negative (NEGATIVE) 05/30/17 23:40 Urine Glucose (UA) Negative (NEGATIVE) 05/30/17 23:40 Urine Ketones Negative (NEGATIVE) 05/30/17 23:40 Urine Blood Negative (NEGATIVE) 05/30/17 23:40 Urine Nitrite Negative (NEGATIVE) 05/30/17 23:40 Urine Bilirubin Negative (NEGATIVE) 05/30/17 23:40 Urine Urobilinogen Negative mg/dL (0.2-1.0) 05/30/17 23:40 Ur Leukocyte Esterase 2+ (NEGATIVE) H 05/30/17 23:40 Urine WBC (Auto) 1 /hpf (3-5) 05/30/17 23:40 Urine RBC (Auto) 2 /hpf (0-3) 05/30/17 23:40 Ur Epithelial Cells Rare /HPF (FEW) 05/30/17 23:40 Urine Bacteria Rare /hpf (NONE SEEN) 05/30/17 23:40 Urine Mucus Few 05/30/17 23:40 RPR Titer Nonreactive (NONREACTIVE) 05/31/17 07:00 lab noted begin lactulose tid - Treatment Hospital Course: Detox Protocol Followed, Detoxed Safely, Responded well, Discharged Condition Good, Rehab Referral Accepted Patient has Accepted a Rehab Referral to: [facility] / [facility] - Medication Discharge Medications: Ambulatory Orders Valacyclovir HCl [Valtrex -] 500 mg PO BID #60 tablet 05/17/13 Ascorbic Acid [Vitamin C -] 500 mg PO BID 05/30/17 Elviteg/Cob/Emtri/Tenofo Disop [Stribild Tablet] 1 each PO DAILY 05/30/17 Gabapentin [Neurontin -] 300 mg PO Q8H 05/30/17 Albuterol Sulfate Inhaler - [Ventolin HFA Inhaler -] 2 puff IH Q4H PRN #1 inhaler 06/04/17 Magnesium Citrate [Citroma] 300 ml PO ONCE 06/04/17 Menthol/Phenol [Cepastat Lozenge -] 1 each MM Q4H 06/04/17 Methadone [Dolophine -] 5 mg PO DAILY 06/04/17 P-Ephed 60Mg/Triprolidi 2.5MG [Actifed -] 1 combo PO Q6H 06/04/17 hydrOXYzine PAMOATE [Vistaril -] 50 mg PO TID 06/04/17 Lactulose (Oral Use) [Cephulac -] 20 gm PO TID 06/06/17 - Diagnosis (1) Alcohol dependence with withdrawal Current Visit: Yes Status: Acute Qualifiers: Complication of substance-induced condition: uncomplicated Qualified Code(s ): F10.230 - Alcohol dependence with withdrawal, uncomplicated (2) Asthma Current Visit: Yes Status: Chronic Qualifiers: Asthma severity: mild Asthma persistence: intermittent Asthma complication type: with status asthmaticus Qualified Code(s): J45.22 - Mild intermittent asthma with status asthmaticus (3) Opioid dependence with withdrawal Current Visit: Yes Status: Acute (4) Neuropathy involving both lower extremities Current Visit: Yes Status: Chronic - AMA Did Patient Leave Against Medical Advice: No
[2017-06-06] MEDS: ELVITEG/COB/EMTRI/TENOFO (STRIBILD) TABLET -NF PO SCH (10:57)
[2017-06-06] MEDS: valACYclovir HCL 500 MG TABLET (FP) PO SCH (10:57)
[2017-06-06] MEDS: PRENATAL VITAMINS W/ FOLIC ACID TABLET (FP) PO SCH (10:57)
[2017-06-06] MEDS: NICOTINE 14 MG/24 HOURS TOPICAL PATCH TD SCH (11:20)
[2017-06-06] MEDS ORDERED: LACTULOSE 20 GM/30 ML UDC (FOR ORAL USE ONLY) PO PRN (14:48)
[2017-06-06 15:43] VITALS: BP 95/68; PULSE 89; TEMP 96.8
--- NOTE | 2017-06-06 18:01 | PN ---
[facility] Progress Note Note: Patient was evaluated. Patient refuse to go to rehab at [facility]. Patient was educated on risks and benefits. As per patient she will go to [facility] rehab tomorrow. Patient medically stable, denies suicidal / homicidal ideation. Patient counselled to follow up with her primary care provider within a week of discharge, if has any new onset or worsening symptoms to seek medical care at local urgent care or ER. Patient verbalized understanding.
[2017-06-06] MEDS ORDERED: LACTULOSE 20 GM/30 ML UDC (FOR ORAL USE ONLY) PO SCH (22:00)
== END 2017-06-06 18:10 | disposition home or self-care (01) | DRG 773 ==
LOC: YASAS 13:55 → Y6N 19:16
PROVIDERS: ADMIT Internal Medicine; ATTEND Internal Medicine
PROC: HZ2ZZZZ Detoxification Services for Substance Abuse Treatment (ICD-10-PCS; principal; 2017-05-30)
DX: F11.23 Opioid dependence with withdrawal (principal); F10.230 Alcohol dependence with withdrawal, uncomplicated; F14.20 Cocaine dependence, uncomplicated; F19.24 Other psychoactive substance dependence with psychoactive substance-induced mood disorder; G62.9 Polyneuropathy, unspecified; Z21 Asymptomatic human immunodeficiency virus [HIV] infection status; J45.22 Mild intermittent asthma with status asthmaticus; B18.2 Chronic viral hepatitis C; R63.4 Abnormal weight loss; Z68.22 Body mass index [BMI] 22.0-22.9, adult; R26.89 Other abnormalities of gait and mobility; Z99.89 Dependence on other enabling machines and devices; Z59.0 Homelessness
CPT/HCPCS: 36415; 80053; 81003; 81015; 82140; 85027; 86593; 93005; 93010

== ENCOUNTER 2021-08-20 18:38 | Inpatient (IN) | payer OTHER ==
[2021-08-20 19:07] VITALS: BMI 25.0
[2021-08-20] MEDS ORDERED: NICOTINE 10 MG CARTRIDGE (INHALER) IH PRN (20:12)
[2021-08-20] MEDS ORDERED: METHOCARBAMOL 500 MG TABLET PO PRN (20:12)
[2021-08-20] MEDS ORDERED: IBUPROFEN 400 MG TABLET (FP) PO PRN (20:12)
[2021-08-20] MEDS ORDERED: MAGNESIUM CITRATE 300 ML BOTTLE PO PRN (20:12)
[2021-08-20] MEDS ORDERED: MELATONIN 5 MG TABLETS PO PRN (20:12)
[2021-08-20] MEDS ORDERED: NICOTINE POLACRILEX 2 MG GUM BUC PRN (20:12)
[2021-08-20] MEDS ORDERED: ACETAMINOPHEN 325 MG TABLET (FP) PO PRN ×2 (20:12)
[2021-08-20] MEDS ORDERED: IBUPROFEN 600 MG TABLET (FP) PO PRN (20:12)
[2021-08-20] MEDS ORDERED: MAGNESIUM HYDROX 2400MG/30ML ORAL SUSPENSION 30 ML CUP PO PRN (20:12)
[2021-08-20] MEDS ORDERED: MAG HYDROX/AL HYDROX/SIMETH 30 ML UNIT-DOSE CUP PO PRN (20:12)
[2021-08-20] MEDS ORDERED: ONDANSETRON *ODT* 4 MG TABLET SL PRN (20:12)
[2021-08-20] MEDS ORDERED: BISMUTH SUBSALICYLATE 524 MG/30 ML PO PRN (20:12)
[2021-08-20] MEDS ORDERED: DICYCLOMINE HCL 10 MG CAPSULE PO PRN (20:12)
[2021-08-20] MEDS ORDERED: BENZOCAINE/MENTHOL (CHLORASEPTIC ) LOZENGE MM PRN (20:12)
[2021-08-20] MEDS ORDERED: LOPERAMIDE HCL 2 MG CAPSULE PO PRN (20:12)
[2021-08-21] MEDS ORDERED: hydrOXYzine PAMOATE 25 MG CAPSULE (FP) PO ONE (00:12)
[2021-08-21] MEDS: GABAPENTIN 300 MG CAPSULE PO SCH ×4 (01:59→23:12)
[2021-08-21] MEDS: THIAMINE HCL 100 MG TABLET (FP) PO SCH ×2 (01:59→23:09)
[2021-08-21] MEDS ORDERED: chlordiazePOXIDE HCL 25 MG CAPSULE PO PRN ×2 (08:13→10:00)
[2021-08-21] MEDS: valACYclovir HCL 500 MG TABLET (FP) PO SCH ×2 (11:38→23:09)
[2021-08-21] MEDS: PRENATAL VITAMINS W/ FOLIC ACID TABLET (FP) PO SCH (11:38)
[2021-08-21] MEDS: chlordiazePOXIDE HCL 25 MG CAPSULE PO SCH ×3 (11:39→23:03)
[2021-08-21 12:51] LABS: HEMATOCRIT 36.2 % (32.4-45.2); HEMOGLOBIN 12.1 GM/dL (10.7-15.3); MCH 30.1 pg (25.7-33.7); MCHC 33.4 g/dl (32.0-36.0); MEAN CELL VOLUME 90.2 fl (80-96); MEAN PLT VOLUME 6.9 fl (7.5-11.1); PLATELET COUNT 160 10^3/uL (134-434); RBC 4.01 M/mm3 (3.60-5.2); RDW 13.4 % (11.6-15.6); WHITE BLOOD COUNT 2.9 K/mm3 (4.0-10.0)
[2021-08-21 13:36] LABS: BILIRUBIN,TOTAL 0.1 mg/dL (0.2-1)
[2021-08-21 13:37] LABS: CALCIUM 8.8 mg/dL (8.5-10.1)
[2021-08-21 13:38] LABS: ALBUMIN 3.2 g/dl (3.4-5.0); BLOOD UREA NITROGEN 15.2 mg/dL (7-18)
[2021-08-21 13:41] LABS: CREATININE 0.8 mg/dL (0.55-1.3)
[2021-08-21 13:42] LABS: TOT PROT 7.7 g/dl (6.4-8.2)
[2021-08-21] MEDS: hydrOXYzine PAMOATE 25 MG CAPSULE (FP) PO PRN (17:55)
[2021-08-21] MEDS: ELVITEG/COB/EMTRI/TENOFO (STRIBILD) TABLET -NF PO SCH (23:05)
[2021-08-22] MEDS: GABAPENTIN 300 MG CAPSULE PO SCH ×2 (06:32→13:06)
[2021-08-22] MEDS: chlordiazePOXIDE HCL 25 MG CAPSULE PO SCH ×3 (06:33→17:15)
[2021-08-22] MEDS: ELVITEG/COB/EMTRI/TENOFO (STRIBILD) TABLET -NF PO SCH (08:56)
[2021-08-22] MEDS: valACYclovir HCL 500 MG TABLET (FP) PO SCH (10:42)
[2021-08-22] MEDS: hydrOXYzine PAMOATE 25 MG CAPSULE (FP) PO PRN (10:42)
[2021-08-22] MEDS: PRENATAL VITAMINS W/ FOLIC ACID TABLET (FP) PO SCH (10:42)
[2021-08-22 17:30] VITALS: BP 97/66; PULSE 80; TEMP 97.8
[2021-08-23] MEDS ORDERED: chlordiazePOXIDE HCL 10 MG CAPSULE PO PRN
[2021-08-23] MEDS ORDERED: chlordiazePOXIDE HCL 10 MG CAPSULE PO SCH (05:00)
[2021-08-24] MEDS ORDERED: chlordiazePOXIDE HCL 10 MG CAPSULE PO SCH (05:00)
[2021-08-25] MEDS ORDERED: chlordiazePOXIDE HCL 10 MG CAPSULE PO ONE (05:00)
== END 2021-08-22 19:25 | disposition left against medical advice (07) | DRG 770 ==
LOC: YASAS 18:38 → Y6N 22:29
PROVIDERS: ADMIT Allergy & Immunology; ATTEND Surgery
PROC: HZ2ZZZZ Detoxification Services for Substance Abuse Treatment (ICD-10-PCS; principal; 2021-08-20)
DX: F11.23 Opioid dependence with withdrawal (principal); F10.230 Alcohol dependence with withdrawal, uncomplicated; F14.20 Cocaine dependence, uncomplicated; F12.10 Cannabis abuse, uncomplicated; F17.210 Nicotine dependence, cigarettes, uncomplicated; Z21 Asymptomatic human immunodeficiency virus [HIV] infection status; J45.20 Mild intermittent asthma, uncomplicated; G62.9 Polyneuropathy, unspecified; B18.2 Chronic viral hepatitis C; Z87.42 Personal history of other diseases of the female genital tract; Z86.69 Personal history of other diseases of the nervous system and sense organs; Z91.014 Allergy to mammalian meats; Z91.041 Radiographic dye allergy status
CPT/HCPCS: 36415; 80053; 85027; 86780; C9803-CS; U0003; U0005

== ENCOUNTER 2023-09-09 11:50 | Inpatient (IN) | payer OTHER ==
[2023-09-09 12:17] VITALS: BMI 22.9
[2023-09-09] MEDS ORDERED: NICOTINE POLACRILEX 2 MG LOZENGE BC PRN (12:56)
[2023-09-09] MEDS ORDERED: MAGNESIUM HYDROX 2400MG/30ML ORAL SUSPENSION 30 ML CUP PO PRN (12:56)
[2023-09-09] MEDS ORDERED: P-EPHED 60MG/TRIPROLIDI 2.5MG TABLET PO PRN (12:56)
[2023-09-09] MEDS ORDERED: BENZOCAINE/MENTHOL (CHLORASEPTIC ) LOZENGE MM PRN (12:56)
[2023-09-09] MEDS ORDERED: LOPERAMIDE HCL 2 MG CAPSULE PO PRN (12:56)
[2023-09-09] MEDS ORDERED: POLYETHYLENE GLYCOL (HEALTHYLAX) 3350 17 GM PACKET PO PRN (12:56)
[2023-09-09] MEDS ORDERED: IBUPROFEN 400 MG TABLET (FP) PO PRN (12:56)
[2023-09-09] MEDS ORDERED: ACETAMINOPHEN 325 MG TABLET (FP) PO PRN (12:56)
[2023-09-09] MEDS ORDERED: NICOTINE POLACRILEX 2 MG GUM BUC PRN (12:56)
[2023-09-09] MEDS ORDERED: BISMUTH SUBSALICYLATE 524 MG/30 ML PO PRN (12:56)
[2023-09-09] MEDS ORDERED: ONDANSETRON *ODT* 4 MG TABLET SL PRN (12:56)
[2023-09-09] MEDS ORDERED: MAG HYDROX/AL HYDROX/SIMETH 30 ML UNIT-DOSE CUP PO PRN (12:56)
[2023-09-09] MEDS ORDERED: BENZONATATE 200 MG CAPSULE PO PRN (12:56)
[2023-09-09] MEDS: diazePAM 5 MG TABLET PO PRN (13:53)
[2023-09-09] MEDS ORDERED: ALBUTEROL SO4 HFA INHALER IH PRN (14:12)
[2023-09-09] MEDS: BICTEGRAV/EMTRICIT/TENOFOV (BIKTARVY) 50-200-25 MG TABLET PO SCH (15:16)
[2023-09-09] MEDS: diazePAM 5 MG TABLET PO SCH (17:41)
[2023-09-09] MEDS: MELATONIN 5 MG TABLETS PO SCH (22:35)
[2023-09-09] MEDS: THIAMINE 100 MG TABLET PO SCH (22:35)
[2023-09-09] MEDS: GABAPENTIN 300 MG CAPSULE PO PRN (22:35)
[2023-09-09] MEDS: valACYclovir HCL 500 MG TABLET (FP) PO SCH (22:35)
[2023-09-09] MEDS: guaiFENesin 600 MG TABLET.ER (FP) PO PRN (22:54)
[2023-09-10] MEDS: PATIENT'S OWN MEDICATION (NON-FORMULARY) (Sofosbuvir/Velpatasvir [Sofosbuvir-Velpatasvir 4 PO SCH (10:20)
[2023-09-10] MEDS: PRENATAL VITAMINS W/ FOLIC ACID TABLET (FP) PO SCH (10:20)
[2023-09-10] MEDS: IBUPROFEN 600 MG TABLET (FP) PO PRN (12:33)
[2023-09-10 13:22] LABS: HEMATOCRIT 36.2 % (32.4-45.2); MCH 29.6 pg (25.7-33.7); MCHC 33.2 g/dl (32.0-36.0); MEAN CELL VOLUME 89.2 fl (80-96); MEAN PLT VOLUME 7.1 fl (7.5-11.1); PLATELET COUNT 248 10^3/uL (134-434); RBC 4.05 M/mm3 (3.60-5.2); RDW 13.5 % (11.6-15.6); WHITE BLOOD COUNT 4.3 K/mm3 (4.0-10.0)
[2023-09-10] MEDS: diazePAM 5 MG TABLET PO PRN (13:24)
[2023-09-10 13:31] LABS: CALCIUM 8.9 mg/dL (8.5-10.1)
[2023-09-10 13:32] LABS: ALBUMIN 3.1 g/dl (3.4-5.0); BLOOD UREA NITROGEN 13.2 mg/dL (7-18)
[2023-09-10 13:33] LABS: CREATININE 0.8 mg/dL (0.55-1.3)
[2023-09-10 13:35] LABS: BILIRUBIN,TOTAL 0.4 mg/dL (0.2-1); TOT PROT 7.5 g/dl (6.4-8.2)
[2023-09-11] MEDS: diazePAM 5 MG TABLET PO SCH (05:02)
[2023-09-12] MEDS: diazePAM 5 MG TABLET PO SCH (05:56)
[2023-09-12] MEDS ORDERED: guaiFENesin 600 MG TABLET.ER (FP) PO PRN (17:13)
[2023-09-12] MEDS: guaiFENesin 600 MG TABLET.ER (FP) PO ONE (17:40)
[2023-09-12] MEDS ORDERED: guaiFENesin 600 MG TABLET.ER (FP) PO SCH (22:00)
[2023-09-13] MEDS: diazePAM 5 MG TABLET PO ONE (05:55)
[2023-09-13] MEDS: METHOCARBAMOL 500 MG TABLET PO PRN (14:54)
[2023-09-14 06:21] VITALS: RESP 16
[2023-09-14 18:15] VITALS: BP 130/74; PULSE 85; TEMP 97.8
== END 2023-09-14 18:55 | disposition other institution (70) | DRG 897 ==
LOC: YASAS 11:50 → Y6N 13:43
PROVIDERS: ADMIT Allergy & Immunology; ATTEND Surgery
PROC: HZ2ZZZZ Detoxification Services for Substance Abuse Treatment (ICD-10-PCS; principal; 2023-09-09)
DX: F10.230 Alcohol dependence with withdrawal, uncomplicated (principal); F14.20 Cocaine dependence, uncomplicated; F12.10 Cannabis abuse, uncomplicated; F17.213 Nicotine dependence, cigarettes, with withdrawal; Z21 Asymptomatic human immunodeficiency virus [HIV] infection status; A60.09 Herpesviral infection of other urogenital tract; J45.20 Mild intermittent asthma, uncomplicated; B18.2 Chronic viral hepatitis C; Z79.899 Other long term (current) drug therapy
CPT/HCPCS: 36415; 73140-TC-RT-FY; 80053; 80305; 80307; 85027; 86780; 87811; 93005; 93010

== ENCOUNTER 2023-09-14 19:05 | Inpatient (IN) | payer OTHER ==
[~2023-09-14 19:05] MED LIST: ACETAMINOPHEN 325 MG TABLET (FP) PO PRN; ALBUTEROL SO4 HFA INHALER IH PRN; BENZOCAINE/MENTHOL (CHLORASEPTIC ) LOZENGE MM PRN; BENZONATATE 200 MG CAPSULE PO PRN; GABAPENTIN 300 MG CAPSULE PO PRN; IBUPROFEN 400 MG TABLET (FP) PO PRN; IBUPROFEN 600 MG TABLET (FP) PO PRN; LOPERAMIDE HCL 2 MG CAPSULE PO PRN; MAG HYDROX/AL HYDROX/SIMETH 30 ML UNIT-DOSE CUP PO PRN; MAGNESIUM HYDROX 2400MG/30ML ORAL SUSPENSION 30 ML CUP PO PRN; NICOTINE POLACRILEX 2 MG GUM BUC PRN; NICOTINE POLACRILEX 2 MG LOZENGE BC PRN; POLYETHYLENE GLYCOL (HEALTHYLAX) 3350 17 GM PACKET PO PRN
[2023-09-14] MEDS: guaiFENesin 600 MG TABLET.ER (FP) PO PRN (21:38)
[2023-09-14] MEDS: THIAMINE 100 MG TABLET PO SCH (21:39)
[2023-09-14] MEDS: MELATONIN 5 MG TABLETS PO SCH (21:39)
[2023-09-15] MEDS: ACAMPROSATE CALCIUM 333 MG TABLET.DR PO SCH (00:48)
[2023-09-15] MEDS: valACYclovir HCL 500 MG TABLET (FP) PO SCH (05:36)
[2023-09-15] MEDS: BICTEGRAV/EMTRICIT/TENOFOV (BIKTARVY) 50-200-25 MG TABLET PO SCH (05:38)
[2023-09-15 07:03] VITALS: BP 114/65; PULSE 70; RESP 16; TEMP 97.7
[2023-09-15] MEDS: PRENATAL VITAMINS W/ FOLIC ACID TABLET (FP) PO SCH (10:27)
[2023-09-15] MEDS ORDERED: GABAPENTIN 300 MG CAPSULE PO SCH (22:00)
== END 2023-09-15 18:24 | disposition left against medical advice (07) | DRG 894 ==
LOC: YASAS 19:05 → Y5N 19:06
PROVIDERS: ADMIT Allergy & Immunology; ATTEND Psychiatry & Neurology Pain Medicine
PROC: HZ42ZZZ Group Counseling for Substance Abuse Treatment, Cognitive-Behavioral (ICD-10-PCS; principal; 2023-09-14)
DX: F10.20 Alcohol dependence, uncomplicated (principal); F14.20 Cocaine dependence, uncomplicated; F12.20 Cannabis dependence, uncomplicated; F17.210 Nicotine dependence, cigarettes, uncomplicated; Z21 Asymptomatic human immunodeficiency virus [HIV] infection status; G62.9 Polyneuropathy, unspecified; E78.5 Hyperlipidemia, unspecified; J45.909 Unspecified asthma, uncomplicated; B18.2 Chronic viral hepatitis C; Z79.899 Other long term (current) drug therapy